=== PATIENT | male | born 1955 | race Caucasian/White ===

== ENCOUNTER 2019-11-11 09:42 | Emergency (ER) | payer OTHER, SELFPAY ==
--- NOTE | ~2019-11-11 | XR_ITS ---
XR ankle RT min 3V 11/11/2019 10:14 INDICATION: Right ankle pain PROCEDURE: 4 views right ankle COMPARISON: No prior studies for comparison. FINDINGS: Fracture, dislocation or subluxation is not identified. Mild lateral soft tissue swelling. No foreign bodies are identified. IMPRESSION: 1: NO ACUTE BONE OR JOINT ABNORMALITY IDENTIFIED. Reviewed, dictated and finalized at location A.
[2019-11-11 09:53] VITALS: BP 145/76; PULSE 62; RESP 12; TEMP 36.3; O2SAT 99
--- NOTE | 2019-11-11 10:17 | ED.LOWEXIN ---
HPI - Extremity Injury (Lower) General Chief Complaint: Extremity Injury, Lower Stated Complaint: Rt ankle inj Time Seen by Provider: 11/11/19 10:05 Source: patient Mode of arrival: ambulatory Limitations: no limitations History of Present Illness HPI Narrative: Jose Daniel Pendleton is a 63 yo male with a PMH of diabetes, HTN, high cholesterol, GERD, who comes to express care with R ankle pain of 8/10. No swelling but has medial pain with any pressure to bottom of foot. No ecchymosis. No pain with elevation. Twisted R ankle yesterday when stepped in hole, pain immediately. Wearing boot-helped with walking Related Data Home Medications Medication Instructions Recorded Confirmed aspirin [Adult Low Dose Aspirin] 81 mg PO DAILY 11/11/19 11/11/19 gabapentin 300 mg PO DAILY 11/11/19 11/11/19 glipizide 10 mg PO TIDWMEAL 11/11/19 11/11/19 hydrochlorothiazide 25 mg PO DAILY 11/11/19 11/11/19 insulin aspart U-100 [Novolog 24 unit SUBCUT TIDWMEAL 11/11/19 11/11/19 Flexpen U-100 Insulin] insulin detemir U-100 [Levemir 100 unit SUBCUT QPM 11/11/19 11/11/19 U-100 Insulin] lisinopril 20 mg PO DAILY 11/11/19 11/11/19 metformin 500 mg PO BID 11/11/19 11/11/19 omeprazole 40 mg PO DAILY 11/11/19 11/11/19 rosuvastatin 40 mg PO DAILY 11/11/19 11/11/19 sertraline 100 mg PO DAILY 11/11/19 11/11/19 Allergies Allergy/AdvReac Type Severity Reaction Status Date / Time amoxicillin Allergy Unknown Hives Verified 11/11/19 09:53 clavulanic acid Allergy Unknown Hives Verified 11/11/19 09:53 Penicillins Allergy Unknown Hives Verified 11/11/19 09:53 prednisone Allergy Unknown PYSCOSIS/TERRIBLE Verified 11/11/19 09:53 DREAMS Review of Systems Review of Systems: Narrative: CONSTITUTIONAL: Denies fever, chills, sweats. EYES: Denies visual changes, redness, discharge. ENT: Denies rhinorrhea, congestion, sore throat, otalgia. CARDIOVASCULAR: Denies chest pain, palpitations, edema. RESPIRATORY: Denies dyspnea, wheezing, cough GASTROINTESTINAL: Denies abdominal pain, nausea, vomiting, diarrhea. GENITOURINARY: Denies dysuria, hematuria, abnormal discharge SKIN: Denies rash or itching. NEUROLOGIC: Denies numbness, or focal weakness. PSYCHIATRIC: Denies anxiety or depression. R ankle pain with no swelling, pain on movement PMFSH Past Medical History Medical History Diabetes GERD (gastroesophageal reflux disease) High cholesterol HTN (hypertension) Family History Family History Other Diabetes mellitus Hypertension Social History Social History Smoking status: Never smoker Alcohol intake: current Comments At time of signature, I agree with nursing past medical, surgical, social and family history. There is no relevant family history pertinent to the presenting complaint. Exam Narrative: Exam Narrative: GENERAL: This is a well-nourished, well-developed patient, in moderate distress with movement HEAD: normocephalic, atraumatic. EYES: PERRL. Sclera clear/white. Vision is grossly intact. EARS: External ears normal, Hearing grossly intact. NOSE: External nose normal , no rhinorrhea. THROAT: Mucous membranes moist, NECK: Neck supple, CARDIOVASCULAR: Regular rate and rhythm without murmurs, gallops, or rubs. RESPIRATORY: Clear to auscultation. Breath sounds equal bilaterally. No wheezes, rales, or rhonchi. GASTROINTESTINAL: Abdomen soft, SKIN: warm, intact with no suspicious lesions or rash, good texture and turgor. NEURO: awake, alert, and oriented to person, place and time. There were no obvious focal neurologic abnormalities. Steady gait EXTREMITIES: Normal range of motion on L, pain on R with flexion/extension, 2+ pedal pulses, no ecchymosis, medial posterior ligament pain with palpation BACK: Nontender without deformity Course Course Emergency Course: Xray- results: no
== END 2019-11-11 10:40 | disposition home or self-care (01) ==
PROVIDERS: Emergency Provider Nurse Practitioner
DX: S93.401A Sprain of unspecified ligament of right ankle, initial encounter (principal); X50.9XXA Other and unspecified overexertion or strenuous movements or postures, initial encounter; E11.9 Type 2 diabetes mellitus without complications; K21.9 Gastro-esophageal reflux disease without esophagitis; E78.00 Pure hypercholesterolemia, unspecified; I10 Essential (primary) hypertension; Z79.82 Long term (current) use of aspirin; Z79.4 Long term (current) use of insulin
CPT/HCPCS: 73610; 99213; G0463

== ENCOUNTER 2023-03-27 10:08 | Emergency (ER) | payer MEDICARE, SELFPAY ==
[2023-03-27] VITALS (23 sets, daily range): BP systolic 100–152; BP diastolic 55–89; PULSE 70–80; RESP 16–20; TEMP 36.7–36.8; O2SAT 95–100
--- NOTE | ~2023-03-27 | CT_ITS ---
EXAMINATION: CT facial & cervical spine wo DATE: 03/27/2023 11:54 INDICATION: Status post fall. Bruising of the eyes with swelling. TECHNIQUE: Computed tomography (CT) of the maxillofacial region and cervical spine was performed with out intravenous contrast. The dose-length product was 465.99 mGy-cm. Automated exposure control and i terative reconstruction technique were employed. COMPARISON: None FINDINGS: MAXILLOFACIAL CT: There are bilateral nasal fractures. There is bilateral periorbital edema. No evidence for orbital bl owout fracture. No significant nasal septal deviation. Left-sided ayesha bullosa. Temporal mandibular joints are symmetric. CERVICAL SPINE CT: Vertebral body heights are maintained. Craniovertebral junction is normal. Odontoid process is normal . No acute fracture or traumatic malalignment. Mild-moderate multilevel uncinate and facet hypertroph y. No evidence for perched facet. IMPRESSION: 1. Bilateral nasal fractures. Reviewed, dictated and finalized at location B. RVISOR BOARDING
--- NOTE | ~2023-03-27 | CT_ITS ---
EXAMINATION: CT BRAIN W/O DATE: 03/27/2023 11:54 INDICATION: Status post fall. Head trauma. TECHNIQUE: Computed tomography (CT) of the head was performed without intravenous contrast. The dose- length product was 605.33 mGy-cm. Automated exposure control and iterative reconstruction technique w ere employed. COMPARISON: No prior studies for comparison. FINDINGS: Normal brain parenchymal volume for age. Normal hearn-white differentiation. Small hyperdens e focus along the anterior interhemispheric fissure on the left, suspicious for tiny extra-axial hemo rrhage.. No ventriculomegaly or midline shift. Midline sagittal images demonstrate a normal corpus callosum, c raniovertebral junction and sella turcica. Basilar cisterns are patent. Paranasal sinuses and mastoids are pneumatized. No depressed skull fractures. There are nasal fractur es. IMPRESSION: 1. Small hyperdense extra-axial focus on the left along the margin of the anterior interhemispheric f issure, suspicious for focal extra-axial hemorrhage, image 30-31. No mass effect. 2: Nasal fractures. Reviewed, dictated and finalized at location B. KE PLATE ATTACHER IMPRESSION: 1. Small hyperdense extra-axial focus on the left along the margin of the anter ior interhemispheric fissure, suspicious for focal extra-axial hemorrhage, imag e 30-31. No mass effect. 2: Nasal fractures.
--- NOTE | ~2023-03-27 | CT_ITS ---
EXAMINATION: CT brain wo con DATE: 03/27/2023 18:37 INDICATION: SAH . TECHNIQUE: Computed tomography (CT) of the head was performed without intravenous contrast. The mA wa s adjusted according to patient size. Iterative reconstruction technique was employed. The dose-lengt h product was 983.67 mGy-cm. COMPARISON: Same date at 11:41 AM. FINDINGS: Motion artifact is present which required repeat imaging, which did not cover all of the areas of mot ion however examination is overall diagnostic. 3 mm hyperdense focus along the left side of the anterior interhemispheric fissure, unchanged. No new acute intracranial hemorrhage or extra-axial fluid collection. No hydrocephalus, mass, or herniation. No acute ischemic infarct. Unremarkable dural venous sinus attenuation. No acute osseous abnormality. Left mastoid fluid, the remaining aerated spaces are clear. IMPRESSION: Unchanged hyperdense focus on the left side of the anterior interhemispheric fissure. Reviewed, dictated and finalized at location K. RVISORY HISTORIAN IMPRESSION: Unchanged hyperdense focus on the left side of the anterior interhemispheric fi ssure.
--- NOTE | 2023-03-27 11:10 | ED.FALL ---
HPI - Fall General Chief Complaint: Fall <Lizeth Powell PA-C - Last Filed: 03/27/23 19:29> Stated Complaint: fall <Lizeth Powell PA-C - Last Filed: 03/27/23 19:29> Time Seen by Provider: 03/27/23 10:16 <Lizeth Powell PA-C - Last Filed: 03/27/23 19:29> History of Present Illness HPI Narrative: 67-year-old male w/ hx of GERD, HTN, insulin dependent T2DM reports for evaluation for nose pain and swelling, I bruising and headache after a fall that occurred last night. Patient states he just moved into a new house and woke up in the middle of night to go to the bathroom, tripped over a chair and hit his face on another chair. He is reporting pain to his right lower lip, swelling and pain to his nose, swelling and pain to his chin, bruising to his eyes. He is also reporting a headache. Denies LOC. He is not anticoagulated. Denies vision changes, focal numbness or weakness, other injuries acquired <Lizeth Powell PA-C - Last Filed: 03/27/23 19:29> Related Data Home Medications: Home Medications Medication Instructions Recorded Confirmed aspirin 81 mg tablet,delayed 81 mg PO DAILY 11/11/19 11/11/19 release (Adult Low Dose Aspirin) gabapentin 300 mg capsule 300 mg PO DAILY 11/11/19 11/11/19 glipizide 5 mg tablet 10 mg PO TIDWMEAL 11/11/19 11/11/19 hydrochlorothiazide 25 mg tablet 25 mg PO DAILY 11/11/19 11/11/19 insulin aspart U-100 100 unit/mL 24 unit subcut TIDWMEAL 11/11/19 11/11/19 (3 mL) subcutaneous pen (Novolog FlexPen U-100 Insulin aspart) insulin detemir U-100 100 unit/mL 100 unit subcut QPM 11/11/19 11/11/19 subcutaneous solution (Levemir U-100 Insulin) lisinopril 20 mg tablet 20 mg PO DAILY 11/11/19 11/11/19 metformin 500 mg tablet,extended 500 mg PO BID 11/11/19 11/11/19 release 24 hr omeprazole 40 mg capsule,delayed 40 mg PO DAILY 11/11/19 11/11/19 release rosuvastatin 40 mg tablet 40 mg PO DAILY 11/11/19 11/11/19 sertraline 100 mg tablet 100 mg PO DAILY 11/11/19 11/11/19 <Lizeth Powell PA-C - Last Filed: 03/27/23 19:29> Allergies/Adverse Reactions: Allergies Allergy/AdvReac Type Severity Reaction Status Date / Time amoxicillin Allergy Unknown Hives Verified 11/11/19 09:53 clavulanic acid Allergy Unknown Hives Verified 11/11/19 09:53 Penicillins Allergy Unknown Hives Verified 11/11/19 09:53 prednisone Allergy Unknown PYSCOSIS/TERRIBLE Verified 11/11/19 09:53 DREAMS <Lizeth Powell PA-C - Last Filed: 03/27/23 19:29> Review of Systems Review of Systems: CONSTITUTIONAL: Denies fever, chills, or sweats. EYES: Denies visual changes, redness, or discharge. ENT: See HPI CARDIOVASCULAR: Denies chest pain, palpitations, or edema. RESPIRATORY: Denies cough or dyspnea. GASTROINTESTINAL: Denies abdominal pain, nausea, vomiting, or diarrhea. GENITOURINARY: Denies dysuria or hematuria. SKIN: See HPI MUSCULOSKELETAL: Denies back pain, joint pain, or myalgia. NEUROLOGIC: See HPI PSYCHIATRIC: Denies anxiety or depression. <Lizeth Powell PA-C - Last Filed: 03/27/23 19:29> COUNT INCLUDES THE [facility] Past Medical History Medical History: Medical History (Updated 03/28/23 @ 00:00 by [facility]) Diabetes GERD (gastroesophageal reflux disease) High cholesterol HTN (hypertension) <Lizeth Powell PA-C - Last Filed: 03/27/23 19:29> Family History Family History: Family History Other Diabetes mellitus Hypertension <Lizeth Powell PA-C - Last Filed: 03/27/23 19:29> Social History Social History: Social History Smoking status: Never smoker Alcohol intake: current <Lizeth Powell PA-C - Last Filed: 03/27/23 19:29> Exam Narrative: GENERAL: Well-appearing, well-nourished, and in no acute distress. HEAD: Normocephalic, atraumatic. EYES: PERRLA and EOMI. Ecchymosis to the bilateral i
[2023-03-27] MEDS: ACETAMINOPHEN 500 MG TABLET 1000 MG PO ×2 (11:26→17:49)
[2023-03-27] MEDS: levETIRAcetam 500 MG TABLET PO (13:38)
--- NOTE | 2023-03-27 19:16 | PC.NURSE ---
Report received from SANTI Adames. Assumed care of patient at this time.
== END 2023-03-27 19:49 | disposition home or self-care (01) ==
PROVIDERS: Emergency Provider Physician Assistant
DX: S06.30AA Unspecified focal traumatic brain injury with loss of consciousness status unknown, initial encounter (principal); S02.2XXA Fracture of nasal bones, initial encounter for closed fracture; I10 Essential (primary) hypertension; E11.9 Type 2 diabetes mellitus without complications; E78.00 Pure hypercholesterolemia, unspecified; K21.9 Gastro-esophageal reflux disease without esophagitis; Z79.82 Long term (current) use of aspirin; Z79.4 Long term (current) use of insulin; Z79.84 Long term (current) use of oral hypoglycemic drugs; W18.09XA Striking against other object with subsequent fall, initial encounter
CPT/HCPCS: 70450; 70486; 72125; 99284; A9270

== ENCOUNTER 2024-10-25 09:31 | Emergency (ER) | payer MEDICARE, SELFPAY ==
[2024-10-25 09:41] VITALS: BP 118/84; PULSE 69; RESP 16; TEMP 36.6; O2SAT 99
--- NOTE | 2024-10-25 09:55 | ED.GENADULT ---
HPI - General Adult General Chief complaint: Upper Respiratory Infection Stated complaint: CHEST CONGESITON/COUGH/SINUS/EARS Source: patient Mode of arrival: ambulatory Limitations: no limitations History of Present Illness HPI narrative: Pt is a 68 y/o male presenting with c/o upper respiratory sx. Sx reported include ear pressure, postnasal drip, cough, congestion. Sx began 4-5 days ago. has sximilar sx--she was recently evaluated here by another provider and dx with bronchitis. Jose Daniel says he has a golf trip next week and wants to nip this in the bud. No known exposure to COVID, flu, strep, PNA. 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 No additionl complaints. Related Data Home Medications ?Medication ?Instructions ?Recorded ?Confirmed ?Last Taken ?Type hydrochlorothiazide 25 mg tablet 25 mg PO DAILY 11/11/19 11/11/19 Unknown History insulin aspart U-100 100 unit/mL 24 unit subcut TIDWMEAL 11/11/19 11/11/19 Unknown History (3 mL) subcutaneous pen (Novolog FlexPen U-100 Insulin aspart) insulin detemir U-100 100 unit/mL 100 unit subcut QPM 11/11/19 11/11/19 Unknown History subcutaneous solution (Levemir U-100 Insulin) lisinopril 20 mg tablet 20 mg PO DAILY 11/11/19 11/11/19 Unknown History metformin 500 mg tablet,extended 500 mg PO BID 11/11/19 11/11/19 Unknown History release 24 hr omeprazole 40 mg capsule,delayed 40 mg PO DAILY 11/11/19 11/11/19 Unknown History release rosuvastatin 40 mg tablet 40 mg PO DAILY 11/11/19 11/11/19 Unknown History sertraline 100 mg tablet 100 mg PO DAILY 11/11/19 11/11/19 Unknown History empagliflozin 25 mg tablet mg 10/25/24 Unknown History (Jardiance) insulin lispro 100 unit/mL subcut 10/25/24 Unknown History subcutaneous pen (Humalog KwikPen (U-100) Insulin) Allergies Allergy/AdvReac Type Severity Reaction Status Date / Time amoxicillin Allergy Unknown Hives Verified 10/25/24 09:39 clavulanic acid Allergy Unknown Hives Verified 10/25/24 09:39 Penicillins Allergy Unknown Hives Verified 10/25/24 09:39 Review of Systems Review of Systems: CONSTITUTIONAL: Denies body aches, fever, chills, or sweats. EYES: Denies visual changes, redness, or discharge. CARDIOVASCULAR: Denies chest pain, palpitations, or edema. RESPIRATORY: Denies dyspnea. GASTROINTESTINAL: Denies abdominal pain, nausea, vomiting, or diarrhea. GENITOURINARY: Denies dysuria or hematuria. SKIN: Denies rash, itching, or wounds. MUSCULOSKELETAL: Denies back pain, joint pain, or myalgia. NEUROLOGIC: Denies headache, numbness, tingling, or weakness. PSYCH: Denies depression or anxiety. All systems reviewed & are unremarkable except as noted in HPI and below PMFSH Past Medical History Medical History GERD (gastroesophageal reflux disease) High cholesterol HTN (hypertension) Diabetes Family History Family History Father Hypertension Heart disease Mother Hypertension Heart disease Other Diabetes mellitus Social History Social History Smoking status: Never smoker Smoking end date: 03/01/97 Alcohol intake: current Substance use: never Substance use type: does not use Do You Feel Safe in your Home?: Yes Lack of Transportation: No Lack of Food: Never True Current Housing: I Have Housing Concerned About Future Housing: No Difficulty Paying Gas/Electric Bills: No Difficulty Paying for Meds: No Currently Unemployed: No Education: Master's Degree or Higher Difficulty w/ Childcare or Family Care: No Exam Narrative: GENERAL: Well-appearing, well-nourished, and in no acute distress. HEAD: Normocephalic, atraumatic. EYES: EOMI. No redness or drainage. Conjunctivae normal. ENT: Mucous membranes pink and moist. Nares clear. No rhinorrhea. TMs normal bilaterally. Throat normal. Uvula Is surgically absent. + scant amount of clear, postnasal drainage. NECK: Normal AROM. Supple. No lymphadenopathy. CHEST: No respiratory distress. Clear to auscultation. HEART: Regular rate and rhythm. No murmur appreciated. Normal peripheral pulses. MUSCULOSKELETAL: No bony tenderness. EXTREMITIES: Normal range of motion. No edema. SKIN: Warm, dry, no rash. Capillary refill normal. Normal skin turgor. NEURO: No focal deficits. Alert and oriented x3. Gait steady. PSYCH: Normal affect. No signs of depression or anxiety. Course Course Level of Care: Express Care Visit Vital Signs Vital signs: Vital Signs Temperature 98 F 10/25/24 09:41 Pulse Rate 69 10/25/24 09:41 Respiratory Rate 16 10/25/24 09:41 Blood Pressure 118/84 10/25/24 09:41 Pulse Oximetry 99 10/25/24 09:41 Oxygen Delivery Room Air 10/25/24 09:41 Temperature 98 F 10/25/24 09:41 Pulse Rate 69 10/25/24 09:41 Respiratory Rate 16 10/25/24 09:41 Blood Pressure 118/84 10/25/24 09:41 Pulse Oximetry 99 10/25/24 09:41 Oxygen Delivery Room Air 10/25/24 09:41 Medical Decision Making Vital Signs Vital Signs: Vital Signs Temperature 98 F 10/25/24 09:41 Pulse Rate 69 10/25/24 09:41 Respiratory Rate 16 10/25/24 09:41 Blood Pressure 118/84 10/25/24 09:41 Pulse Oximetry 99 10/25/24 09:41 Oxygen Delivery Room Air 10/25/24 09:41 Temperature 98 F 10/25/24 09:41 Pulse Rate 69 10/25/24 09:41 Respiratory Rate 16 10/25/24 09:41 Blood Pressure 118/84 10/25/24 09:41 Pulse Oximetry 99 10/25/24 09:41 Oxygen Delivery Room Air 10/25/24 09:41 Discharge Plan Discharge Clinical Impression: Upper respiratory infection Qualifiers: URI type: acute nasopharyngitis (common cold) Qualified Code(s): J00 - Acute nasopharyngitis [common cold] Patient Disposition: Home Condition: Stable Instructions: Cold Symptoms (ED) Additional Instructions: Go straight to ER should your symptoms become worse or should any new symptoms develop Patient Language: Georgian Prescriptions: No Action lisinopril 20 mg tablet 20 mg PO DAILY sertraline 100 mg tablet 100 mg PO DAILY omeprazole 40 mg capsule,delayed release(DR/EC) 40 mg PO DAILY hydrochlorothiazide 25 mg tablet 25 mg PO DAILY metformin 500 mg tablet extended release 24 hr 500 mg PO BID rosuvastatin 40 mg tablet 40 mg PO DAILY Levemir U-100 Insulin 100 unit/mL solution 100 unit SUBCUT QPM insulin aspart U-100 [Novolog FlexPen U-100 Insulin] 100 unit/mL (3 mL) insulin pen 24 unit SUBCUT TIDWMEAL insulin lispro [Humalog KwikPen Insulin] 100 unit/mL insulin pen SUBCUT Jardiance 25 mg tablet Follow-up/Referrals: Vanessa,Matti [Other] - 10/26/24 Time of Disposition: 10:04
== END 2024-10-25 10:05 | disposition home or self-care (01) ==
PROVIDERS: Emergency Provider Registered Nurse
DX: J00 Acute nasopharyngitis [common cold] (principal); E11.9 Type 2 diabetes mellitus without complications; I10 Essential (primary) hypertension; Z79.4 Long term (current) use of insulin; Z79.899 Other long term (current) drug therapy
CPT/HCPCS: 99211; G0463

== ENCOUNTER 2024-11-09 10:45 | Emergency (ER) | payer MEDICARE, SELFPAY ==
[2024-11-09 11:10] VITALS: BP 137/71; PULSE 86; RESP 16; O2SAT 97
--- NOTE | 2024-11-09 11:13 | ED.URI ---
HPI - URI/Sore Throat General Chief Complaint: Upper Respiratory Infection Stated Complaint: COUGH Time Seen by Provider: 11/09/24 11:15 Source: patient Mode of arrival: ambulatory Limitations: no limitations History of Present Illness HPI Narrative: Jose Daniel is a 68-year-old male patient presenting to the clinic today with complaints of productive cough with green and yellow phlegm, post nasal drip, sinus/nasal congestion with yellow/green drainage, mild shortness of breath, and chest congestion x 3.5 weeks. He reports he was seen 3 weeks ago and was told his symptoms were viral and it had to run its course. States he has not been taking any OTC medications for his symptoms. Denies any fever, chills, or body aches. Related Data Home Medications ?Medication ?Instructions ?Recorded ?Confirmed ?Last Taken ?Type hydrochlorothiazide 25 mg tablet 25 mg PO DAILY 11/11/19 11/09/24 Unknown History insulin aspart U-100 100 unit/mL 24 unit subcut TIDWMEAL 11/11/19 11/09/24 Unknown History (3 mL) subcutaneous pen (Novolog FlexPen U-100 Insulin aspart) insulin detemir U-100 100 unit/mL 100 unit subcut QPM 11/11/19 11/09/24 Unknown History subcutaneous solution (Levemir U-100 Insulin) lisinopril 20 mg tablet 20 mg PO DAILY 11/11/19 11/09/24 Unknown History metformin 500 mg tablet,extended 500 mg PO BID 11/11/19 11/09/24 Unknown History release 24 hr omeprazole 40 mg capsule,delayed 40 mg PO DAILY 11/11/19 11/09/24 Unknown History release rosuvastatin 40 mg tablet 40 mg PO DAILY 11/11/19 11/09/24 Unknown History sertraline 100 mg tablet 100 mg PO DAILY 11/11/19 11/09/24 Unknown History empagliflozin 25 mg tablet mg 10/25/24 Unknown History (Jardiance) insulin lispro 100 unit/mL subcut 10/25/24 Unknown History subcutaneous pen (Humalog KwikPen (U-100) Insulin) Allergies Allergy/AdvReac Type Severity Reaction Status Date / Time amoxicillin Allergy Unknown Hives Verified 11/09/24 11:07 clavulanic acid Allergy Unknown Hives Verified 11/09/24 11:07 Penicillins Allergy Unknown Hives Verified 11/09/24 11:07 Review of Systems Review of Systems: Pertinent positives per HPI. Patient denies any fever, chills, rash, headache, visual changes, dizziness, chest pain, palpitations, nausea, vomiting, diarrhea, constipation, abdominal pain, or any urinary issues. [facility] Past Medical History Medical History (Updated 11/09/24 @ 11:15 by Dino Boudreaux APRN) GERD (gastroesophageal reflux disease) High cholesterol HTN (hypertension) Diabetes Family History Family History Father Hypertension Heart disease Mother Hypertension Heart disease Other Diabetes mellitus Social History Social History Smoking status: Never smoker Smoking end date: 03/01/97 Alcohol intake: current Substance use: never Substance use type: does not use Do You Feel Safe in your Home?: Yes Lack of Transportation: No Lack of Food: Never True Current Housing: I Have Housing Concerned About Future Housing: No Difficulty Paying Gas/Electric Bills: No Difficulty Paying for Meds: No Currently Unemployed: No Education: Master's Degree or Higher Difficulty w/ Childcare or Family Care: No Comments At the time of my signature, I reviewed and agree with the nursing past medical, surgical, social, and family history. There is no relevant family history pertinent to the patient complaint. Exam Narrative: General: Well-developed, well nourished, in no apparent distress Head: Normocephalic, atraumatic Eyes: Pupils equally round and reactive to light bilaterally, EOM intact, sclera and conjunctive clear, no discharge, lids normal Ears: TMs intact and congested, ear canals clear, no drainage, grossly hearing normal. Nose: Nares patent, yellow nasal discharge, moderate inflammation, no sinus tenderness. Mouth: Oral pharynx red without lesions or masses, good dentition, MMM. Postnasal drip Neck: Supple, trachea midline, no enlargement of anterior or posterior cervical nodes, no thyroid masses or goiter palpable. Cardio: Regular rate and rhythm, s1 and s2 normal, no murmur appreciated. Resp: Coarse lung sounds over the bases of the lung yusuf, no rales, wheezing or rubs Course Course Emergency Course: Portions of this record may have been created with voice recognition software. Level of Care: Express Care Visit Vital Signs Vital signs: Vital Signs Oxygen Delivery Room Air 11/09/24 11:08 Pulse Rate 86 11/09/24 11:10 Respiratory Rate 16 11/09/24 11:10 Blood Pressure 137/71 11/09/24 11:10 Pulse Oximetry 97 11/09/24 11:10 Oxygen Delivery Room Air 11/09/24 11:08 Vital signs reviewed MDM - URI/Sore Throat MDM Narrative Medical decision making narrative: At the time of visit patient is resting comfortably on the exam table. Patient appears to be nontoxic. Complaints of productive cough with green and yellow phlegm, post nasal drip, sinus/nasal congestion with yellow/green drainage, mild shortness of breath, and chest congestion x 3.5 weeks. He reports he was seen 3 weeks ago and was told his symptoms were viral and it had to run its course. States he has not been taking any OTC medications for his symptoms. Denies any fever, chills, or body aches. On exam patient has bilateral ear congestion, yellow nasal drainage, moderate swelling of the nasal turbinates, postnasal drip, with mild course/congested lung yusuf. Plan: I suspect patient has sinusitis/bronchitis. Prescription for albuterol inhaler, Tessalon Perles, doxycycline, and prednisone was sent to the pharmacy. Supportive measures were discussed with the patient and they voiced understanding discharge instructions and agrees to treatment plan. Return precautions reviewed Differential Diagnosis Differential diagnosis: Likely upper respiratory infection, otitis media, sinusitis, viral infection, bronchitis, influenza, pharyngitis and other (COVID) Discharge Plan Discharge Clinical Impression: Sinobronchitis Patient Disposition: Home Condition: Stable Instructions: Antibiotic Form, Sinusitis (ED), Acute Bronchitis (ED) Additional Instructions: Take prescription medications only as prescribed-prednisone, doxycycline, albuterol inhaler, and Tessalon Perles Increase fluids and stay well hydrated May take Tylenol or motrin as directed on bottle for pain/fever May use Flonase 1 spray in each nare daily May take OTC antihistamines such as Zyrtec or Claritin daily as directed on bottle May apply Vicks vapor rub to chest to open sinuses Sinus rinses for congestion Cepacol spray, cough drops, throat lozenges, warm tea with honey/lemon, gargle salt water to soothe throat BRAT diet for diarrhea Clear liquids x 24 hours then advance as tolerated for nausea/vomiting Go to the ED if you develop a worsening in your condition- high fever not controlled by Tylenol or Motrin, dehydration, weakness, lethargy, shortness of breath, or chest pain. Follow up with your PCP in 3-5 days if symptoms persist. Patient Language: Albanian Prescriptions: New benzonatate 200 mg capsule 200 mg PO TID 7 Days Qty: 21 0RF albuterol sulfate 90 mcg/actuation HFA aerosol inhaler 2 puff inhalation Q4-6H PRN (Reason: shortness of breath or wheezing) 30 Days Qty: 8.5 0RF doxycycline hyclate 100 mg capsule 100 mg PO BID 7 Days Qty: 14 0RF prednisone 20 mg tablet 40 mg PO DAILY 5 Days Qty: 10 0RF No Action lisinopril 20 mg tablet 20 mg PO DAILY sertraline 100 mg tablet 100 mg PO DAILY omeprazole 40 mg capsule,delayed release(DR/EC) 40 mg PO DAILY hydrochlorothiazide 25 mg tablet 25 mg PO DAILY metformin 500 mg tablet extended release 24 hr 500 mg PO BID rosuvastatin 40 mg tablet 40 mg PO DAILY Levemir U-100 Insulin 100 unit/mL solution 100 unit SUBCUT QPM insulin aspart U-100 [Novolog FlexPen U-100 Insulin] 100 unit/mL (3 mL) insulin pen 24 unit SUBCUT TIDWMEAL insulin lispro [Humalog KwikPen Insulin] 100 unit/mL insulin pen SUBCUT Jardiance 25 mg tablet Follow-up/Referrals: Vanessa,Matti [Other] Time of Disposition: 11:14 Quality NIHSS Nursing Documentation ED NIHSS nursing documentation: reviewed/agree
== END 2024-11-09 11:24 | disposition home or self-care (01) ==
PROVIDERS: Emergency Provider Nurse Practitioner Family
DX: J32.9 Chronic sinusitis, unspecified (principal); J40 Bronchitis, not specified as acute or chronic; Z87.891 Personal history of nicotine dependence; I10 Essential (primary) hypertension; E11.9 Type 2 diabetes mellitus without complications; Z79.4 Long term (current) use of insulin; Z79.84 Long term (current) use of oral hypoglycemic drugs; E78.00 Pure hypercholesterolemia, unspecified; K21.9 Gastro-esophageal reflux disease without esophagitis
CPT/HCPCS: 99213; G0463

== ENCOUNTER 2025-02-16 09:12 | Emergency (ER) | payer MEDICARE, SELFPAY ==
[2025-02-16 09:26] VITALS: BP 122/88; PULSE 67; RESP 16; TEMP 36.2; O2SAT 98
--- NOTE | 2025-02-16 10:06 | ED.URI ---
HPI - URI/Sore Throat General Chief Complaint: Upper Respiratory Infection Stated Complaint: Uri Symptoms Time Seen by Provider: 02/16/25 09:50 Source: patient and RN notes reviewed Mode of arrival: ambulatory Limitations: no limitations History of Present Illness HPI Narrative: 69-year-old male patient presents Express Care complaining of upper respiratory symptoms for 3-4 days. Patient reports that mucopurulent cough, congestion, wheezing, fevers, body aches, chills, sweats. Denies any chest pain, difficulty breathing, any other upper respiratory symptoms, nausea vomiting, or any other symptoms. Patient reports a history of diabetes and high blood pressure. The taking [id number] cold and flu medication without relief. Related Data Home Medications ?Medication ?Instructions ?Recorded ?Confirmed ?Last Taken ?Type hydrochlorothiazide 25 mg tablet 25 mg PO DAILY 11/11/19 11/09/24 Unknown History insulin aspart U-100 100 unit/mL 24 unit subcut TIDWMEAL 11/11/19 11/09/24 Unknown History (3 mL) subcutaneous pen (Novolog FlexPen U-100 Insulin aspart) insulin detemir U-100 100 unit/mL 100 unit subcut QPM 11/11/19 11/09/24 Unknown History subcutaneous solution (Levemir U-100 Insulin) lisinopril 20 mg tablet 20 mg PO DAILY 11/11/19 11/09/24 Unknown History metformin 500 mg tablet,extended 500 mg PO BID 11/11/19 11/09/24 Unknown History release 24 hr omeprazole 40 mg capsule,delayed 40 mg PO DAILY 11/11/19 11/09/24 Unknown History release rosuvastatin 40 mg tablet 40 mg PO DAILY 11/11/19 11/09/24 Unknown History sertraline 100 mg tablet 100 mg PO DAILY 11/11/19 11/09/24 Unknown History empagliflozin 25 mg tablet mg 10/25/24 Unknown History (Jardiance) insulin lispro 100 unit/mL subcut 10/25/24 Unknown History subcutaneous pen (Humalog KwikPen (U-100) Insulin) Allergies Allergy/AdvReac Type Severity Reaction Status Date / Time amoxicillin Allergy Unknown Hives Verified 02/16/25 09:28 clavulanic acid Allergy Unknown Hives Verified 02/16/25 09:28 Penicillins Allergy Unknown Hives Verified 02/16/25 09:28 Review of Systems Review of Systems: CONSTITUTIONAL: Positive for body aches fever, chills, and sweats. EYES: Denies visual changes, redness, or discharge. ENT: Denies rhinorrhea, sore throat, or otalgia. Positive for congestion CARDIOVASCULAR: Denies chest pain, palpitations, or edema. RESPIRATORY: Positive for cough and wheezing. Negative for dyspnea. GASTROINTESTINAL: Denies abdominal pain, nausea, vomiting, or diarrhea. GENITOURINARY: Denies dysuria or hematuria. SKIN: Denies rash or itching. MUSCULOSKELETAL: Denies back pain, joint pain, or myalgia. NEUROLOGIC: Denies headache, numbness, or weakness. PSYCHIATRIC: Denies anxiety or depression. All other systems reviewed are negative, except as documented in HPI. [facility] Past Medical History Medical History GERD (gastroesophageal reflux disease) High cholesterol HTN (hypertension) Diabetes Family History Family History Father Hypertension Heart disease Mother Hypertension Heart disease Other Diabetes mellitus Social History Social History Smoking status: Never smoker Smoking end date: 03/01/97 Alcohol intake: current Substance use: never Substance use type: does not use Lack of Transportation: No Lack of Food: Never True Current Housing: I Have Housing Concerned About Future Housing: No Difficulty Paying Gas/Electric Bills: No Difficulty Paying for Meds: No Currently Unemployed: No Education: Master's Degree or Higher Difficulty w/ Childcare or Family Care: No Comments At the time of my signature, I reviewed and agree with the nursing past medical, surgical, social, and family history. There is no relevant family history pertinent to the patient complaint. Exam Narrative: GENERAL: This is a well-nourished, well-developed adult, in no apparent distress. They are non ill-appearing, nontoxic appearing. HEAD: normocephalic, atraumatic. EYES: Sclera clear/white. Conjunctiva normal. Vision is grossly intact. Extraocular movements intact EARS: External ears normal, auditory canals clear and without drainage, TMs normal without perforation. Hearing grossly intact. NOSE: External nose normal with no obvious nasal discharge, nasal turbinates erythematous, no rhinorrhea. THROAT: Mucous membranes moist, posterior pharynx erythematous. Uvula midline. PND present. NECK: Neck supple, non-tender without lymphadenopathy, masses or thyromegaly. CARDIOVASCULAR: Regular rate and rhythm without murmurs, gallops, or rubs. RESPIRATORY: Inspiratory wheezes heard throughout.. Breath sounds equal bilaterally. No rales, or rhonchi. Respiratory rate normal, respiratory effort nonlabored, no respiratory distress SKIN: warm, Dry, intact with no suspicious lesions or rash, good texture and turgor. NEURO: awake, alert, and oriented to person, place and time. There were no obvious focal neurologic abnormalities. EXTREMITIES: No joint tenderness, effusion, or edema noted. BACK: Nontender without deformity. Course Course Level of Care: Express Care Visit Vital Signs Vital signs: Vital Signs Temperature 97.1 F L 02/16/25 09:26 Pulse Rate 67 02/16/25 09:26 Respiratory Rate 16 02/16/25 09:26 Blood Pressure 122/88 02/16/25 09:26 Pulse Oximetry 98 02/16/25 09:26 Temperature 97.1 F L 02/16/25 09:26 Pulse Rate 67 02/16/25 09:26 Respiratory Rate 16 02/16/25 09:26 Blood Pressure 122/88 02/16/25 09:26 Pulse Oximetry 98 02/16/25 09:26 [facility] MDM Narrative Medical decision making narrative: Appears patient has bronchitis. Given his history of diabetes exam findings will give him a course of prednisone and azithromycin. Will also send him home with albuterol inhaler. Discussed physical exam findings. Advised supportive measures and signs/symptoms to go to the ER. Pt is appropriate for outpt treatment and f/u. Differential Diagnosis Differential Diagnosis: Differential diagnostic considerations for upper respiratory infection include upper respiratory infection, croup, otitis media, sinusitis, viral infection, bronchitis, influenza, pharyngitis, strep, uvulitis. Critical Care Time Critical Care Time Critical Care Time: No Discharge Plan Discharge Clinical Impression: Acute purulent bronchitis Patient Disposition: Home Condition: Stable Instructions: Antibiotic Form, Acute Bronchitis (ED) Additional Instructions: Acute bronchitis can be contagious because it is usually caused by infection with a virus or bacteria. It is usually for a few days but you can be contagious for up to one week. Avoid crowds until you do not have a fever and symptoms are improved Take prednisone as directed. Take azithromycin as directed. Use albuterol inhaler as needed for wheezing or shortness of breath. Tylenol and ibuprofen as needed for pain or fevers. Symptomatic treatment includes: rest, fluids, and increase humidity of the air at home. Monitor your blood pressures closely while taking prednisone. Follow up with your primary care provider 3-5 days Go to the ER for worsening symptoms, chest pain, breathing problems, vomiting, weakness, or serious concerns Patient Language: Kinyarwanda Prescriptions: New azithromycin 250 mg tablet See Rx Instructions .ROUTE .COMPLEX Qty: 6 0RF Rx Instructions: For 250 mg dose pack: take 500 mg today (day 1), then 250 mg for 4 days (days 2-5) prednisone 20 mg tablet 40 mg PO DAILY 5 Days Qty: 10 0RF albuterol sulfate [Ventolin HFA] 90 mcg/actuation HFA aerosol inhaler 2 puff inhalation QID PRN (Reason: shortness of breath or wheezing) Qty: 8.5 0RF No Action lisinopril 20 mg tablet 20 mg PO DAILY sertraline 100 mg tablet 100 mg PO DAILY omeprazole 40 mg capsule,delayed release(DR/EC) 40 mg PO DAILY hydrochlorothiazide 25 mg tablet 25 mg PO DAILY metformin 500 mg tablet extended release 24 hr 500 mg PO BID rosuvastatin 40 mg tablet 40 mg PO DAILY Levemir U-100 Insulin 100 unit/mL solution 100 unit SUBCUT QPM insulin aspart U-100 [Novolog FlexPen U-100 Insulin] 100 unit/mL (3 mL) insulin pen 24 unit SUBCUT TIDWMEAL benzonatate 200 mg capsule 200 mg PO TID 7 Days Qty: 21 0RF albuterol sulfate 90 mcg/actuation HFA aerosol inhaler 2 puff inhalation Q4-6H PRN (Reason: shortness of breath or wheezing) 30 Days Qty: 8.5 0RF doxycycline hyclate 100 mg capsule 100 mg PO BID 7 Days Qty: 14 0RF prednisone 20 mg tablet 40 mg PO DAILY 5 Days Qty: 10 0RF insulin lispro [Humalog KwikPen Insulin] 100 unit/mL insulin pen SUBCUT Jardiance 25 mg tablet Follow-up/Referrals: UNKNOWN,DOCTOR [Primary Care Provider] Time of Disposition: 09:55
== END 2025-02-16 09:59 | disposition home or self-care (01) ==
DX: J20.9 Acute bronchitis, unspecified (principal); E11.9 Type 2 diabetes mellitus without complications; Z79.4 Long term (current) use of insulin; Z79.84 Long term (current) use of oral hypoglycemic drugs; I10 Essential (primary) hypertension; E78.00 Pure hypercholesterolemia, unspecified; K21.9 Gastro-esophageal reflux disease without esophagitis; Z87.891 Personal history of nicotine dependence
CPT/HCPCS: 99213; G0463